=== PATIENT | male | born 1985 | race Caucasian/White ===

== ENCOUNTER 2023-05-21 11:36 | Emergency (ER) | payer OTHER, SELFPAY ==
[2023-05-21 11:39] VITALS: BP 134/92; PULSE 79; RESP 18; TEMP 36.4; O2SAT 98; BMI 22.4
--- NOTE | 2023-05-21 11:47 | PC.NURSE ---
Dr. Duke at [facility] for pt eval
--- NOTE | 2023-05-21 11:52 | HMH.EDGENADL ---
Discharge Plan Disposition Patient Disposition: Home, Self-Care Prescriptions Prescriptions: New amoxicillin-pot clavulanate 875-125 mg tablet 1 tab PO BID 7 Days Qty: 14 0RF Referrals Follow up/Referrals: Sarah Quiros APRN [Primary Care Provider] - See instructions Activity Restrictions/Add. Instructions Additional Instructions/Restrictions: Take Augmentin twice daily for 7 days. Call your family doctor to establish care for this visit to the emergency department and schedule follow-up within 48 hours to ensure improvement. If you have any worsening of your condition or any other concerning signs or symptoms, return to the emergency department or your primary care doctor for further evaluation. Be sure to call dentistry tomorrow. Take Tylenol 1000 mg every 6 hours (4 times daily) and ibuprofen 400 mg every 6 hours (4 times daily) as needed with food and water to prevent GI upset and kidney damage. Clinical Impressions Clinical Impression: Dental abscess, Cellulitis of face Discharge ED Provider: Chaz Duke [facility] HPI General Chief complaint: Dental/Oral Stated complaint: INFECTION ON RT SIDE OF FACE AND JAW, SWELLING Time Seen by Provider: 05/21/23 11:38 Mode of Arrival: Ambulatory Source of Information: Patient Limitations: No Limitations Description of Symptoms (Recalled from ER Triage Doc. by RN): swelling to r face History of Present Illness HPI narrative: 37-year-old male no relevant medical history presenting with facial swelling. Started today, 05/21 after he woke up. Has gotten progressively worse. Associated with moderate aching pain that does not radiate. No voice changes, tenderness with range of motion of neck, difficulty opening jaw, or any other concerns. No fevers or chills. No overlying skin changes. Patient does have multiple broken teeth, dental caries and poor dentition. Related Data Previous Rx's Medication Instructions Recorded amoxicillin 875 mg-potassium 1 tab PO BID 7 days #14 tabs 05/21/23 clavulanate 125 mg tablet Allergies Allergy/AdvReac Type Severity Reaction Status Date / Time No Known Allergies Allergy Verified 05/21/23 11:49 [facility] Disclaimer: The information contained in this section may have been updated after the patient was seen, as this information can be updated by other users. Social History Smoking Status: Current every day smoker alcohol intake: never current occupational status: employed Travel in the last 8 weeks: None ROS Obtained: Yes All systems reviewed & no additional complaints except as documented Physical Exam General General appearance: alert, in no apparent distress and anxious Head Head exam: atraumatic and normocephalic Eye Eye exam: Present normal appearance, PERRL and EOMI ENT ENT exam: Present mucous membranes moist and other (Poor dentition, multiple dental caries and broken/rotted teeth. No obvious periapical abscess, drainable fluid collection. Patient does have facial cellulitis on the right side around the angle of the mandible, but no discrete bony tenderness. No trismus.) Neck Neck exam: Present normal inspection, full ROM and trachea midline Respiratory Respiratory exam: Absent respiratory distress, wheezes, stridor, accessory muscle use or prolonged expiratory phase Cardiovascular Cardiovascular exam: Present normal rhythm Abdominal Exam Abdominal exam: Present soft; Absent distention, tenderness, guarding, rebound, rigidity or normal bowel sounds Extremities Exam Extremities exam: Absent edema Neurological Exam Neurological exam: Present alert, oriented X3, CN II-XII intact and normal gait; Absent motor sensory deficit Skin Skin exam: Present warm and dry; Absent diaphoresis or erythema Medical Decision Making Medical Records Medical records reviewed: Yes I reviewed the patient's medical records. Julio C Inquiry Pt receiving controlled substance: No Julio C was queried for this pat
[2023-05-21 11:55] VITALS: BP 132/89; PULSE 79; RESP 18; TEMP 36.4
== END 2023-05-21 11:59 | disposition home or self-care (01) ==
LOC: ER 11:58
PROVIDERS: Emergency Provider Emergency Medicine; PCP Nurse Practitioner Family
DX: L03.211 Cellulitis of face (principal); K04.7 Periapical abscess without sinus; R22.0 Localized swelling, mass and lump, head; F17.210 Nicotine dependence, cigarettes, uncomplicated
CPT/HCPCS: 96372; 99283

== ENCOUNTER 2023-11-16 17:08 | Emergency (ER) | payer OTHER, SELFPAY ==
[2023-11-16 18:05] VITALS: BP 132/67; PULSE 62; RESP 20; TEMP 36.7; O2SAT 100; BMI 22.4
--- NOTE | 2023-11-16 18:37 | ED_ITS ---
Discharge Plan Disposition Patient Disposition: Home, Self-Care Condition: Good Prescriptions Prescriptions: New amoxicillin-pot clavulanate 875-125 mg Tablet 1 tab PO Q12H Qty: 20 0RF ibuprofen 600 mg tablet 600 mg PO Q6HP PRN (Reason: Moderate Pain) Qty: 20 0RF Referrals Follow up/Referrals: Sarah Quiros APRN [Primary Care Provider] - See instructions Activity Restrictions/Add. Instructions Additional Instructions/Restrictions: Take medication as prescribed Follow up with Dentist as recommended Use dental balls as directed in [facility] for pain Straight to ER if any life threatening symptoms Clinical Impressions Clinical Impression: Dental abscess Instructions Patient Instructions: DI for Tooth Abscess, Tooth Abscess Discharge ED Provider: Citlalli Clements [facility] [place] HPI General Stated complaint: Sore throat,pain in lower right teeth Mode of Arrival: Ambulatory Source of Information: Patient Limitations: No Limitations Time Seen by Provider: 11/16/23 18:37 Description of Symptoms (Recalled from Triage Doc. by RN): PATIENT C/O RIGHT LOWER TOOTH PAIN THAT RADIATES TO JAW AND BACK OF NECK THAT STARTED TODAY HEENT Symptoms (Recalled from RN notes): Yes Resp Symptoms (Recalled from RN notes): No Skin Symptoms (Recalled from RN notes): No MS Symptoms (Recalled from RN notes): No Functional Status (Recalled from RN notes): WNL History of Present Illness Provider Complaint: Patient has several broken and decaying teeth on his right lower jaw area that shoots through his mouth and he wasnt sure if the tooth was infected again or if his throat was sore States he noticed he was having swelling in his gums States he has seen the dentist and was recommended to see oral surgeon but he cant afford too Related Data Previous Rx's Medication Instructions Recorded amoxicillin 875 mg-potassium 1 tab PO Q12H #20 tabs 11/16/23 clavulanate 125 mg tablet ibuprofen 600 mg tablet 600 mg PO Q6HP PRN Moderate Pain 11/16/23 #20 tabs Allergies Allergy/AdvReac Type Severity Reaction Status Date / Time No Known Allergies Allergy Verified 05/21/23 11:49 Worker's Comp Is this a Worker's Comp case?: No [facility] Disclaimer: The information contained in this section may have been updated after the patient was seen, as this information can be updated by other users. Medical History (Updated 11/16/23 @ 18:54 by Citlalli Clements APRN) No significant past medical history Social History (Updated 05/21/23 @ 11:58 by Chaz Duke MD) Smoking Status: Current every day smoker alcohol intake: never current occupational status: employed Travel in the last 8 weeks: None ROS Obtained: Yes All systems reviewed & no additional complaints except as documented and Yes Systems reviewed as appropriate & no additional complaints except as documented Constitutional Constitutional: Reports system reviewed and no additional complaints, except as documented and Reports as per HPI ENT Ears, Nose, Mouth, and Throat: Reports system reviewed and no additional complaints, except as documented, Reports as per HPI, Reports dental pain and Reports sore throat Cardiovascular Cardiovascular: Reports system reviewed and no additional complaints, except as documented and Reports as per HPI Respiratory Respiratory: Reports system reviewed and no additional complaints, except as documented and Reports as per HPI Physical Exam General General appearance: alert and in no apparent distress ENT ENT exam: Present mucous membranes moist Expanded ENT Exam Teeth exam: Present dental caries, fractured tooth # (multiple broken and fractured teeth) and gingival swelling (redness and swelling to gums) Respiratory Respiratory exam: Present normal lung sounds bilaterally; Absent respiratory distress or wheezes Cardiovascular Cardiovascular exam: Present regular rate, normal rhythm and normal heart sounds Neurological Exam Neurological exam: Present alert, oriented X3 and normal gait Medical Decision Making Julio C Inquiry Pt receiving controlled substance: No Julio C was queried for this patient: No Vital Signs: 11/16/23 18:05 Temperature 98.0 F Temperature Source Oral Pulse Rate [Left Brachial] 62 Respiratory Rate 20 Blood Pressure [Left Arm] 132/67 Blood Pressure Mean [Left Arm] 88 Blood Pressure Source [Left Arm] Automatic Cuff Blood Pressure Position [Left Arm] Sitting 02 Sat by Pulse Oximetry 100 Oxygen Delivery Method Room Air
[2023-11-16] MEDS: LIDOCAINE 2% VISCOUS SOL 15ML UDC 15 ML PO (18:55)
[2023-11-16] MEDS: AMOXICILLIN/POT CLAVULAN 500MG TABLET 1 EACH PO (18:55)
[2023-11-16] MEDS: TETRACAINE/BENZOCAINE/BUTAMBEN 56 GM SPRAY TP (18:55)
[2023-11-16 18:58] VITALS: BP 132/67; PULSE 62; RESP 20; TEMP 36.7; O2SAT 100
== END 2023-11-16 18:59 | disposition home or self-care (01) ==
PROVIDERS: Emergency Provider Nurse Practitioner; PCP Nurse Practitioner Family
DX: K04.7 Periapical abscess without sinus (principal); R07.0 Pain in throat; F17.210 Nicotine dependence, cigarettes, uncomplicated
CPT/HCPCS: 99212; 99214; G0463